=== PATIENT | female | born 1980 | race African-American/Black ===

== ENCOUNTER 2017-03-25 16:48 | Emergency (ER) | payer MEDICAID ==
[~2017-03-25] VITALS: Ht 162.6 cm; Wt 113.4 kg
[2017-03-25 18:00] VITALS: BP 137/90
== END 2017-03-25 20:03 | disposition home or self-care (01) ==
LOC: ER 17:02
DX: Z04.1 Encounter for examination and observation following transport accident (principal); F17.210 Nicotine dependence, cigarettes, uncomplicated; F12.10 Cannabis abuse, uncomplicated; V49.59XA Passenger injured in collision with other motor vehicles in traffic accident, initial encounter; Y93.89 Activity, other specified; Y99.8 Other external cause status; Y92.410 Unspecified street and highway as the place of occurrence of the external cause